=== PATIENT | female | born 2005 | race Caucasian/White ===

== ENCOUNTER 2024-06-12 23:18 | Emergency (ER) | payer MEDICAID ==
[~2024-06-12] VITALS: Ht 152.4 cm; Wt 54.4 kg
[2024-06-13 00:13] VITALS: O2SAT 97
[2024-06-13 00:17] VITALS: BP 110/72; PULSE 86; RESP 16; TEMP 98.5; O2SAT 99
== END 2024-06-13 07:38 | disposition home or self-care (01) ==
LOC: ER 06-13 00:45
DX: O26.892 Other specified pregnancy related conditions, second trimester (principal); R21 Rash and other nonspecific skin eruption; Z3A.18 18 weeks gestation of pregnancy
CPT/HCPCS: 99281